=== PATIENT | female | born 1950 | race Caucasian/White ===

== ENCOUNTER → 2017-01-26 | Outpatient (CLI) | payer BC ==
[~2017-01-26] MED LIST: CHLOR-TRIMETON PO; CLARITIN10 MG PO; OTC ALLERGY MEDS PO; PERCOCET5/325 PO; PHENERGAN PO; PRILOSEC PO; SUDAFED PO; SYNTHROID0.1 MG PO; SYNTHROID75 MCG PO; TUMS; VICODIN 5/500 T1 TAB PO; ZYRTEC10 M2 PO
--- NOTE | ~2017-01-26 | MY11 ---
[facility] A Service of [facility] / [facility] RADIOLOGY TEXT RESULTS PATIENT: RUDY PIERRE LOCATION: [facility] : 52 UNIT #: [id number] AGE: [address]: KYLE DUMAS MD SEX: F ORDER DR: [id number] [facility] [address] [place], [place] [address] [id number] O MR#: [id number] Acc #: [id number] NAME: RUDY PIERRE : 1950 SEX: F STUDY DATE/TIME: 01/26/2017 13:56 UNIT: [facility] ROOM: STUDY DESCRIPTION: MY Mammogram Screening Dig Emmanuel Attending Physician: Kyle Dumas M.D. Ordering Physician: Kyle Dumas M.D. Primary Care Physician: Kyle Dumas M.D. MEDICAL IMAGING REPORT This report is preliminary unless electronic signature is present EXAM Digital screening mammogram. DATE OF EXAM 01/26/2017 LOCATION [facility]. HISTORY 66-year-old woman strong family history, 2 sisters. Patient is on hormone replacement. Annual screen. COMPARISON Mammograms date to 01/04/2007, with most recent screening comparison 04/09/2015. TECHNIQUE Digital imaging of each breast was completed utilizing screening protocol. Review includes FDA-approved CAD device. FINDINGS Breast parenchyma is partially fatty replaced. Parenchymal dominance again projects upper central left breast with a stable appearance. I see no interval occurring mass. There are no suspicious microcalcifications, and no suspicious architectural deformity. IMPRESSION Stable benign mammogram with parenchymal dominance left breast. Annual screening recommended. Patients over the age of 40 are entered into a reminder system with target due date for the next mammogram. A result letter will also be sent to the [facility] A Service of [facility] / [facility] RADIOLOGY TEXT RESULTS PATIENT: RUDY PIERRE LOCATION: [facility] : 52 UNIT #: [id number] AGE: [address]: KYLE DUMAS MD SEX: F ORDER DR: patient. BIRADS: 2 Benign findings. Dictated by... Elton Leal M.D. THIS IS AN ELECTRONICALLY VERIFIED REPORT Elton Leal M.D. at 01/29/2017 8:16 AM KIRBY/yossi TD: 01/26/2017 17:17 JOB #: [id number] MEDICAL IMAGING REPORT Page 1 of 1 COPY
== END | disposition home or self-care (01) ==
LOC: CWCC 11:10
DX: Z12.31 Encounter for screening mammogram for malignant neoplasm of breast (principal); Z80.3 Family history of malignant neoplasm of breast; Z79.890 Hormone replacement therapy
CPT/HCPCS: G0202

== ENCOUNTER → 2017-03-24 | Outpatient (CLI) | payer BC ==
[2017-03-24 09:45] LABS: CHOLESTEROL 155 mg/dL (0-200); HDL CHOLESTEROL 56 mg/dL (35-95); LDL CHOLESTEROL 80 mg/dL (-130); LDL/HDL RATIO 1 RATIO (0-4); TRIGLYCERIDES 94 mg/dL (10-160)
[2017-03-24 09:52] LABS: THYROID STIMULATING HORMONE 2.37 uIU/ml (0.34-5.60)
[2017-03-24 09:59] LABS: FREE THYROXIN (T4) 1.26 ng/dL (0.58-1.64)
== END | disposition home or self-care (01) ==
LOC: CLAB 08:49
PROVIDERS: Nurse Practitioner Psychiatric/Mental Health
DX: E03.9 Hypothyroidism, unspecified (principal); R73.03 Prediabetes
CPT/HCPCS: 36415; 80061; 83036; 84439; 84443